=== PATIENT | female | born 1985 | race Caucasian/White ===

== ENCOUNTER 2017-04-12 13:35 | Emergency (ER) | payer OTHER ==
[2017-04-12] MEDS ORDERED: KETOROLAC TROMETHAMINE INJ/PF 30 MG/1 ML SDV IM ONE (16:30)
[2017-04-12] MEDS ORDERED: DIAZEPAM 5 MG TABLET PO ONE (16:31)
--- NOTE | 2017-04-12 16:37 | ER Document Report ---
ED Neck/Back Problem - General Chief Complaint: Neck Pain < 24hrs old Stated Complaint: NECK PAIN Time Seen by Provider: 04/12/17 16:18 Mode of Arrival: Ambulatory Information source: Patient TRAVEL OUTSIDE OF THE [place] IN LAST 30 DAYS: No - HPI Patient complains to provider of: Pain Onset: This morning Where: Home Onset: Cannot confirm Timing: Constant Quality of pain: No pain, Cramping Severity: Moderate Recent injury: No Notes: Patient arrives with complaints of neck pain and stiffness with stiffness to the right lateral neck that started this morning when she woke up. Patient has a history of arthritis in her neck and states that she currently takes Celebrex and Robaxin for her neck. She denies any traumas or falls. She denies any fever. She denies any headache. She denies any unilateral numbness, tingling, weakness. She denies any chest pain or shortness of breath. She denies fevers. She denies blood thinners. She denies IV drug use. She denies any immunosuppression or diabetes. No chest pain or shortness of breath. No bowel or bladder dysfunction. She denies any abdominal pain. No nausea, vomiting, diarrhea. No blurred or loss vision. Pain is significantly worse with any sort of movement, better with keeping her head still. No rash. No other complaints at this time. - Related Data Allergies/Adverse Reactions: Penicillins Allergy (Severe, Verified 04/12/17 13:36) Generalized edema Past Medical History - Social History Smoking Status: Unknown if Ever Smoked Family History: Reviewed & Not Pertinent - Past Medical History Cardiac Medical History: Denies: Hx Heart Attack, Hx Hypertension Pulmonary Medical History: Reports: Hx Asthma - as a child/no problem as an adult Neurological Medical History: Denies: Hx Cerebrovascular Accident, Hx Seizures GI Medical History: Denies: Hx Hepatitis, Hx Hiatal Hernia - small umbilical hernia, Hx Ulcer Infectious Medical History: Denies: Hx Hepatitis Past Surgical History: Reports: Hx Gynecologic Surgery. Denies: Hx Hysterectomy , Hx Mastectomy, Hx Open Heart Surgery, Hx Pacemaker - Immunizations Immunizations up to date: Yes Hx Diphtheria, Pertussis, Tetanus Vaccination: Yes Review of Systems - Review of Systems -: Yes All other systems reviewed and negative Physical Exam - Notes Notes: GENERAL: alert, cooperative, nontoxic, no distress. HEAD: normocephalic, atraumatic EYES: conjunctiva pink without discharge, no external redness or swelling. Pupils are equal, round, reactive to light. EARS: no external swelling, no external redness NOSE: atraumatic, no external swelling MOUTH/THROAT: mucous membranes moist and pink, posterior pharynx without erythema, swelling, exudate. No trismus or drooling. NECK: soft, supple, no meningismus. Muscle spasm noted to the right trapezius muscle with tenderness along the trapezius muscle and limited range of motion of the neck secondary to pain and muscle spasm. No stridor. No redness. CHEST: no distress, lungs clear and equal throughout. No wheezing, rales, rhonchi. CARDIAC: regular rate and rhythm, no murmur, normal capillary refill, normal pulses. No peripheral edema noted. BACK: full range of motion, no CVA tenderness. EXTREMITIES: full range of motion of all extremities. No redness, no swelling. NEURO: alert and oriented x 3, cranial nerves II through XII are grossly intact. Upper and lower extremities are equal throughout. Normal sensation. No focal deficits, full range of motion of all extremities. normal finger to nose. Bicep and tricep reflexes are +2 bilaterally. PYSCH: appropriate mood, affect. Patient is cooperative. SKIN: pink, warm, dry, no rash. Course - Re-evaluation Re-evalutation: 04/12/17 16:36 Patient is nontoxic appearing with stable vitals. The patient has a history of arthritis within her neck. She woke up this morning with stiffness and increased pain to the neck. She is noted to have muscle spasms to the right trapezius muscle and exam consistent with torticollis. No fevers, no meningismus, no sign of meningitis. She has a nonfocal neurological exam with normal sensation, strength and reflexes. No sign of epidural abscess/bleed. Patient will be given a shot of Toradol and Valium here in the emergency department. She will be discharged home with prescription for Voltaren and Valium. She has an appointment with her primary care doctor tomorrow which she was instructed to keep for reevaluation. She should follow-up sooner she develops increasing pain, fevers, weakness, any further concerns. The patient's emergency department workup and current diagnosis were explained to the patient and or family. Follow-up instructions were provided. Medications if prescribed were discussed. Instructions for when to return to the emergency department including specific worrisome symptoms were discussed with the patient and/or family. The patient is noted to have elevated blood pressure during today's emergency department visit. The patient was informed of this finding. The patient was instructed that this may be related to pre-hypertension and requires further evaluation with a primary care provider. The patient has no hypertensive symptoms at this time. Discharge - Discharge Clinical Impression: Torticollis, acute Condition: Stable Disposition: HOME, SELF-CARE Instructions: Torticollis ([facility]) Additional Instructions: Take medications as prescribed. Follow-up with your doctor as scheduled tomorrow. Follow-up sooner for increasing pain, fever, severe headache, numbness, tingling, weakness, any further concerns. Your blood pressure was elevated during today's visit. Have this rechecked with your doctor. The medication you were prescribed today may cause drowsiness. Do not drive or operate heavy machinery while taking this medication. Prescriptions: Diazepam [Valium 5 mg Tablet] 5 mg PO QIDP PRN #15 tablet PRN Reason: Diclofenac Sodium [Voltaren 50 Mg Tablet.Dr] 50 mg PO BID #20 tablet.dr Forms: Elevated Blood Pressure, Smoking Cessation Education Referrals: CHRIS HOLLOWAY MD [NO LOCAL MD] - Follow up as needed RACHID HDZ MD [NO LOCAL MD] - Follow up as needed MITCHELL FLORES MD [NO LOCAL MD] - Follow up as needed EBER GUY MD [COMMUNITY BASED STAFF] - Follow up as needed
[2017-04-12 17:16] VITALS: BP 123/69
== END 2017-04-12 17:12 | disposition home or self-care (01) ==
LOC: ER 13:35
DX: M43.6 Torticollis (principal); M47.9 Spondylosis, unspecified; Z79.899 Other long term (current) drug therapy; Z79.1 Long term (current) use of non-steroidal anti-inflammatories (NSAID); M54.2 Cervicalgia; M62.830 Muscle spasm of back; R03.0 Elevated blood-pressure reading, without diagnosis of hypertension; Z88.0 Allergy status to penicillin
CPT/HCPCS: 99283; 96372; J1885

== ENCOUNTER 2018-05-30 19:52 | Emergency (ER) | payer OTHER ==
--- NOTE | 2018-05-30 22:27 | RADIOLOGY REPORT (SQ) ---
EXAM DESCRIPTION: XR FOOT 3 OR MORE VIEWS COMPLETED DATE/TME: 05/30/2018 21:40 CLINICAL HISTORY: 33 years, Female, toe injury Findings: There is a minimally displaced comminuted fracture of the first proximal phalanx extending from its base obliquely its distal shaft. No dislocation. IMPRESSION: First proximal phalanx minimally displaced fracture.
--- NOTE | 2018-05-30 22:51 | ER Document Report ---
ED Medical Screen (RME) - General Chief Complaint: Toe Injury Stated Complaint: LEFT GREAT TOE INJURY Time Seen by Provider: 05/30/18 22:46 Mode of Arrival: Wheelchair Information source: Patient Notes: pt tripped today hurting right foot. hurts to walk, swellling noted I have greeted and performed a rapid initial assessment of this patient. A comprehensive ED assessment and evaluation of the patient, analysis of test results and completion of the medical decision making process will be conducted by additional ED providers. TRAVEL OUTSIDE OF THE [place] IN LAST 30 DAYS: No - Related Data Allergies/Adverse Reactions: Penicillins Allergy (Severe, Verified 04/12/17 13:36) Generalized edema Past Medical History - Past Medical History Cardiac Medical History: Denies: Hx Heart Attack, Hx Hypertension Pulmonary Medical History: Reports: Hx Asthma - as a child/no problem as an adult Neurological Medical History: Denies: Hx Cerebrovascular Accident, Hx Seizures Renal/ Medical History: Denies: Hx Peritoneal Dialysis GI Medical History: Denies: Hx Hepatitis, Hx Hiatal Hernia - small umbilical hernia, Hx Ulcer Infectious Medical History: Denies: Hx Hepatitis Past Surgical History: Reports: Hx Gynecologic Surgery. Denies: Hx Hysterectomy, Hx Mastectomy, Hx Open Heart Surgery, Hx Pacemaker - Immunizations Immunizations up to date: Yes Hx Diphtheria, Pertussis, Tetanus Vaccination: Yes Physical Exam - Vital signs Vitals: Temp Pulse Resp BP Pulse Ox 98.6 F 86 18 115/77 100 05/30/18 20:50 05/30/18 20:50 05/30/18 20:50 05/30/18 20:50 05/30/18 20:50 Course - Vital Signs Vital signs: Temp Pulse Resp BP Pulse Ox 98.6 F 86 18 115/77 100 05/30/18 20:50 05/30/18 20:50 05/30/18 20:50 05/30/18 20:50 05/30/18 20:50
[2018-05-30] MEDS ORDERED: ACETAMINOPHEN 325 MG TABLET PO ONE (22:52)
--- NOTE | 2018-05-30 22:59 | ER Document Report ---
HPI - HPI Time Seen by Provider: 05/30/18 22:46 Pain Level: 5 Notes: Patient is a 33-year-old female with no significant past medical history who presents to the emergency department complaining of left great toe pain status post injury yesterday. Patient states that she tripped somehow and is not sure which way her toe went, but noted immediate pain. Patient states that she has been limping around since then. Patient states that the pain is worse with touching and movement. Denies drug allergies aside from penicillin. No other concerns or complaints. Denies IV drug abuse. Denies any headache, fever, URI, sore throat, chest pain, palpitations, syncope, cough, shortness of breath, wheeze, dyspnea, abdominal pain, nausea/vomiting/diarrhea, urinary retention, dysuria, hematuria, loss of control of bowel or bladder, muscle paralysis/weakness, or rash. - ROS Systems Reviewed and Negative: Yes All other systems reviewed and negative - REPRODUCTIVE Reproductive: DENIES: : Past Medical History - General Information source: Patient - Social History Smoking Status: Current Every Day Smoker Family History: Reviewed & Not Pertinent - Past Medical History Cardiac Medical History: Denies: Hx Heart Attack, Hx Hypertension Pulmonary Medical History: Reports: Hx Asthma - as a child/no problem as an adult Neurological Medical History: Denies: Hx Cerebrovascular Accident, Hx Seizures Renal/ Medical History: Denies: Hx Peritoneal Dialysis GI Medical History: Denies: Hx Hepatitis, Hx Hiatal Hernia - small umbilical hernia, Hx Ulcer Infectious Medical History: Denies: Hx Hepatitis Past Surgical History: Reports: Hx Gynecologic Surgery. Denies: Hx Hysterectomy, Hx Mastectomy, Hx Open Heart Surgery, Hx Pacemaker - Immunizations Immunizations up to date: Yes Hx Diphtheria, Pertussis, Tetanus Vaccination: Yes Vertical Provider Document - CONSTITUTIONAL Agree With Documented VS: Yes Notes: PHYSICAL EXAMINATION: GENERAL: Well-appearing, well-nourished and in no acute distress. LUNGS: Breath sounds clear to auscultation bilaterally and equal. No wheezes rales or rhonchi. HEART: Regular rate and rhythm without murmurs, rubs, gallops. Musculoskeletal: Left foot/ankle: + ecchymosis and swelling to the left great toe. + associated tenderness. LROM to passive/active of the toe, FROM otherwise. Strength 5+/5. N/V intact distal. Achilles intact. Extremities: No cyanosis, clubbing, or edema b/l. Peripheral pulses 2+. Capillary refill less than 3 seconds. NEUROLOGICAL: Normal speech, limping gait. Normal sensory, motor exams PSYCH: Normal mood, normal affect. SKIN: Warm, Dry, normal turgor, no rashes or lesions noted. - INFECTION CONTROL TRAVEL OUTSIDE OF THE [place] IN LAST 30 DAYS: No Course - Re-evaluation Re-evalutation: 05/30/18 Patient is an afebrile, well-hydrated, 33-year-old female who presents to the ED with a fracture to the left prox great toe, mild displacement, occurred 24hrs ago. Vitals are acceptable without any significant tachycardia, tachypnea, or hypoxia. PE is otherwise unremarkable for any neurovascular compromise, obvious tendon/ligament rupture, open fracture, septic joint. See XR result. Splint applied today and crutches provided. Tylenol given PO. Patient is nontoxic- appearing. No other labs or imaging warranted at this time based on H&P. Conservative measures otherwise for symptoms. Recheck with your PCM in 3-5 d ays. Call orthopedics tomorrow to schedule an appointment for further evaluation and management. Return to the ED with any worsening/concerning symptoms otherwise as reviewed in discharge. Patient is in agreement. - Vital Signs Vital signs: Temp Pulse Resp BP Pulse Ox 98.6 F 86 18 115/77 100 05/30/18 20:50 05/30/18 20:50 05/30/18 20:50 05/30/18 20:50 05/30/18 20:50 Procedures - Immobilization Left Foot Time completed: 23:20 Pre-Proc Neuro Vasc Exam: Normal Immobilizer type: Posterior ankle Performed by: PCT Post-Proc Neuro Vasc Exam: Normal, Unchanged from pre-exam Discharge - Discharge Clinical Impression: Toe fracture, left Qualifiers: Encounter type: initial encounter Toe: great toe Fracture type: closed Phalanx: proximal Fracture alignment: displaced Qualified Code(s): S92.412A - Displaced fracture of proximal phalanx of left great toe, initial encounter for closed fracture Condition: Stable Disposition: HOME, SELF-CARE Instructions: Splint Precautions ([facility]) Additional Instructions: Rest, Ice, Compression, Elevation Use crutches/splint as directed Tylenol/ibuprofen as needed F/u with your PCP in 3-5 days for a recheck Call orthopedics tomorrow to schedule an appointment for further evaluation and management Return to the ED with any worsening symptoms and/or development of fever, headache, chest pain, palpitations, syncope, shortness of breath, trouble breathing, abdominal pain, n/v/d, muscle weakness/paralysis, numbness/tingling, swelling, redness, or other worsening symptoms that are concerning to you. Forms: Smoking Cessation Education, Return to Work Referrals: [facility] [Provider Group] - Follow up in 3-5 days
[2018-05-30 23:35] VITALS: BP 135/74
== END 2018-05-30 23:35 | disposition home or self-care (01) ==
LOC: ER 19:52
DX: S92.412A Displaced fracture of proximal phalanx of left great toe, initial encounter for closed fracture (principal); W01.0XXA Fall on same level from slipping, tripping and stumbling without subsequent striking against object, initial encounter; F17.200 Nicotine dependence, unspecified, uncomplicated
CPT/HCPCS: 99283

== ENCOUNTER 2019-08-16 18:27 | Emergency (ER) | payer OTHER ==
--- NOTE | 2019-08-16 19:31 | RADIOLOGY REPORT (SQ) ---
EXAM DESCRIPTION: FOOT LEFT COMPLETE IMAGES COMPLETED DATE/TIME: 08/16/2019 7:20 pm REASON FOR STUDY: fall COMPARISON: None. NUMBER OF VIEWS: Three views. TECHNIQUE: AP, lateral and oblique radiographic images acquired of the left foot. LIMITATIONS: None. FINDINGS: MINERALIZATION: Normal. BONES: No acute fracture or dislocation. No worrisome bone lesions. JOINTS: No effusions. SOFT TISSUES: No soft tissue swelling. No foreign body. OTHER: No other significant finding. IMPRESSION: NEGATIVE STUDY OF THE LEFT FOOT. NO RADIOGRAPHIC EVIDENCE OF ACUTE INJURY. TECHNICAL DOCUMENTATION: JOB ID: [id number] 2010 [employer]- All Rights Reserved Reading location - IP/workstation name: [email or web address]
--- NOTE | 2019-08-16 21:12 | ER Document Report ---
ED Extremity Problem, Lower - General Chief Complaint: Toe Injury Stated Complaint: TOE PAIN Time Seen by Provider: 08/16/19 18:40 Primary Care Provider: IBETH BRANTLEY PA-C [Primary Care Provider] - Follow up as needed ALLI SMITH DO [ACTIVE STAFF] - Follow up as needed Mode of Arrival: Wheelchair Information source: Patient Notes: Patient is a 34-year-old female comes emergency room complaining of left great toe pain. Patient states she was coming down her steps and she slipped and hyperextended her left great toe. Patient states that toe was fractured 1 year ago. Injury occurred at home. She denies any other injuries. Patient was barefoot at the time of the incident. TRAVEL OUTSIDE OF THE [place] IN LAST 30 DAYS: No - HPI Patient complains to provider of: Injury. No: Swelling Location: Great Toe Occurred: Just prior to arrival Where: Home Onset/Duration: Sudden Quality of pain: Throbbing Severity: Moderate Pain Level: 3 Context: Barefoot Recent injury: Yes Exacerbated by: Movement, Walking Relieved by: Elevation, Rest - Related Data Allergies/Adverse Reactions: Penicillins Allergy (Severe, Verified 08/16/19 18:39) Generalized edema Home Medications: zyrtec. diclofenac Past Medical History - General Information source: Patient - Social History Smoking Status: Current Every Day Smoker Cigarette use (# per day): Yes - Half pack a day Chew tobacco use (# tins/day): No Smoking Education Provided: Yes Frequency of alcohol use: Social Drug Abuse: None Family History: Reviewed & Not Pertinent Patient has homicidal ideation: No - Past Medical History Cardiac Medical History: Denies: Hx Heart Attack, Hx Hypertension Pulmonary Medical History: Reports: Hx Asthma - as a child/no problem as an adult Neurological Medical History: Denies: Hx Cerebrovascular Accident, Hx Seizures Renal/ Medical History: Denies: Hx Peritoneal Dialysis GI Medical History: Denies: Hx Hepatitis, Hx Hiatal Hernia - small umbilical hernia, Hx Ulcer Infectious Medical History: Denies: Hx Hepatitis Past Surgical History: Reports: Hx Gynecologic Surgery. Denies: Hx Hysterectomy, Hx Mastectomy, Hx Open Heart Surgery, Hx Pacemaker - Immunizations Immunizations up to date: Yes Hx Diphtheria, Pertussis, Tetanus Vaccination: Yes Review of Systems - Review of Systems Constitutional: No symptoms reported EENT: No symptoms reported Cardiovascular: No symptoms reported Respiratory: No symptoms reported Gastrointestinal: No symptoms reported Genitourinary: No symptoms reported Female Genitourinary: No symptoms reported Musculoskeletal: See HPI, Joint pain Skin: No symptoms reported Hematologic/Lymphatic: No symptoms reported Neurological/Psychological: No symptoms reported -: Yes All other systems reviewed and negative Physical Exam - Vital signs Vitals: Temp Pulse Resp BP Pulse Ox 99.5 F 86 20 138/71 H 100 08/16/19 18:31 08/16/19 18:31 08/16/19 18:31 08/16/19 18:31 08/16/19 18:31 Interpretation: Hypertensive - Notes Notes: PHYSICAL EXAMINATION: GENERAL: Well-appearing, well-nourished and in no acute distress. HEAD: Atraumatic, normocephalic. LUNGS: Breath sounds clear to auscultation bilaterally and equal. No wheezes rales or rhonchi. HEART: Regular rate and rhythm without murmurs Musculoskeletal: Examination patient's area concern is her left great toe. Examination shows no overt swelling noted. Mild tenderness is noted at the base of the great toe at the distal metatarsal area. Patient has some increased discomfort with resistance against flexion but not as bad on extension. She has good cap refill in nailbeds of the toe itself. Palpation of the dorsum of the foot shows no tenderness. Palpation of the ankle shows no tenderness and has full range of motion with flexion extension that is good against resistance as well as rotation. NEUROLOGICAL: Normal speech, normal gait. Normal sensory, motor exams PSYCH: Normal mood, normal affect. SKIN: Warm, Dry, normal turgor, no rashes or lesions noted. Course - Re-evaluation Re-evalutation: 08/17/19 00:13 Patient's x-ray was negative for any fractures. Examination was non-concerning for a ligament damage since she had flexion and extension but had discomfort with 3 resistance in flexion. Given that we placed patient in a postop shoe and crutches nonweightbearing for the next couple of days. Tylenol Motrin for pain or discomfort and ice 2-3 times a day for a few minutes. - Vital Signs Vital signs: Temp Pulse Resp BP Pulse Ox 98.8 F 80 16 130/78 H 98 08/16/19 21:35 08/16/19 21:35 08/16/19 21:35 08/16/19 21:35 08/16/19 21:35 Procedures - Immobilization Left Foot Great toe Time completed: 21:09 Pre-Proc Neuro Vasc Exam: Normal Immobilizer type: Post-op shoe Performed by: RN Post-Proc Neuro Vasc Exam: Normal Alignment checked and good: No Discharge - Discharge Clinical Impression: Strain of toe of left foot Qualifiers: Encounter type: initial encounter Qualified Code(s): S96.912A - Strain of unspecified muscle and tendon at ankle and foot level, left foot, initial encounter Disposition: HOME, SELF-CARE Instructions: Sprained Toe ([facility]) Additional Instructions: Use the crutches and postop shoe for the next 2 to 3 days. Try to be nonweightbearing as much as possible or time. You should start noticing a change in the discomfort over the next 24 to 48 hours. Ice to the toe or foot 3 times a day. Take Tylenol and Motrin for pain or discomfort. If pain continues I will give you the name the orthopedic doctor he can follow-up with. Should you have any other concerns or problems return to ER for recheck. Forms: Parent Work Note Referrals: IBETH BRANTLEY PA-C [Primary Care Provider] - Follow up as needed ALLI SMITH DO [ACTIVE STAFF] - Follow up as needed
[2019-08-16 21:44] VITALS: BP 130/78
== END 2019-08-16 21:38 | disposition home or self-care (01) ==
LOC: ER 18:27
DX: S96.912A Strain of unspecified muscle and tendon at ankle and foot level, left foot, initial encounter (principal); W10.9XXA Fall (on) (from) unspecified stairs and steps, initial encounter; Y92.009 Unspecified place in unspecified non-institutional (private) residence as the place of occurrence of the external cause; F17.210 Nicotine dependence, cigarettes, uncomplicated; J45.909 Unspecified asthma, uncomplicated; Z88.0 Allergy status to penicillin
CPT/HCPCS: 99283

== ENCOUNTER 2019-09-23 21:26 | Emergency (ER) | payer OTHER ==
[2019-09-23 21:31] VITALS: BP 142/89
[2019-09-23] MEDS ORDERED: BUTALB/ACETAMINOPHEN/CAFFEINE 1 TAB EACH PO ONE (21:54)
[2019-09-23] MEDS ORDERED: PREDNISONE 20 MG TABLET PO ONE (21:54)
--- NOTE | 2019-09-23 21:55 | ER Document Report ---
HPI - HPI Time Seen by Provider: 09/23/19 21:50 Notes: Otherwise healthy 34-year-old female presents emergency department concern for sunburn. Patient reports she was in the sun 3 days ago, she states she received a severe sunburn and also has a headache. She reports she did use SPF 50 and a pplied it multiple times. - ROS Systems Reviewed and Negative: Yes All other systems reviewed and negative - CONSTITUTIONAL Constitutional: REPORTS: Chills - NEURO Neurology: REPORTS: Headache - REPRODUCTIVE Reproductive: DENIES: : - DERM Skin Color: Other - Sunburn Past Medical History - General Information source: Patient - Social History Smoking Status: Never Smoker Frequency of alcohol use: None Drug Abuse: None Family History: Reviewed & Not Pertinent - Past Medical History Cardiac Medical History: Denies: Hx Heart Attack, Hx Hypertension Pulmonary Medical History: Reports: Hx Asthma - as a child/no problem as an adult Neurological Medical History: Denies: Hx Cerebrovascular Accident, Hx Seizures Renal/ Medical History: Denies: Hx Peritoneal Dialysis GI Medical History: Denies: Hx Hepatitis, Hx Hiatal Hernia - small umbilical hernia, Hx Ulcer Infectious Medical History: Denies: Hx Hepatitis Past Surgical History: Reports: Hx Gynecologic Surgery. Denies: Hx Hysterectomy, Hx Mastectomy, Hx Open Heart Surgery, Hx Pacemaker - Immunizations Immunizations up to date: Yes Hx Diphtheria, Pertussis, Tetanus Vaccination: Yes Vertical Provider Document - CONSTITUTIONAL Notes: PHYSICAL EXAMINATION: GENERAL: Well-appearing, well-nourished and in no acute distress. HEAD: Atraumatic, normocephalic. EYES: Pupils equal round extraocular movements intact, conjunctiva are normal. ENT: Nares patent NECK: Normal range of motion LUNGS: No respiratory distress Musculoskeletal: Normal range of motion NEUROLOGICAL: Normal speech, normal gait. PSYCH: Normal mood, normal affect. SKIN: First-degree meyer noted to patient's chest, back and face. Consistent with sunburn. - INFECTION CONTROL TRAVEL OUTSIDE OF THE [place] IN LAST 30 DAYS: No Course - Re-evaluation Re-evalutation: Patient given a dose of Fioricet here in the emergency department for headache. She will be instructed to start taking Aquaphor for her sunburn. Patient verbalized understanding and agreement with this plan. - Vital Signs Vital signs: Temp Pulse Resp BP Pulse Ox 99.2 F 90 20 142/89 H 100 09/23/19 21:30 09/23/19 21:30 09/23/19 21:30 09/23/19 21:30 09/23/19 21:30 Discharge - Discharge Clinical Impression: Sunburn Headache Qualifiers: Headache type: unspecified Headache chronicity pattern: unspecified pattern Intractability: not intractable Qualified Code(s): R51 - Headache Condition: Stable Disposition: HOME, SELF-CARE Additional Instructions: Sunburn Sunburn is caused by prolonged exposure to ultraviolet light. This can be natural sunlight or a tanning bed. Your symptoms may include redness or blistering of the skin, fatigue, weakness, and chills that last two or three days. Treatment includes antiinflammatory pain medication, rest, cooling baths, and moisturizing skin cream. Occasionally, cortisone-type medicine is required for severe sunburns. Antihistamines may be helpful if itching is severe as you heal. You should avoid any exposure to ultraviolet light for the next week or two so that further skin damage can be avoided. In the future, you should use sunscreens. Frequent or prolonged ultraviolet light exposure can cause premature skin aging, skin cancers, and wrinkles. Call the doctor if you are not improving in two or three days. Report any drainage, increasing swelling, fever, chills, or other signs of infection. Please purchase [id number] Aquaphor cream, apply this to the areas 3 times per day. Take the steroids as prescribed. Follow-up with your primary care doctor. Prescriptions: Prednisone [Deltasone 20 mg Tablet] 3 tab PO DAILY 4 Days #12 tablet Forms: Return to Work Referrals: IBETH BRANTLEY PA-C [Primary Care Provider] - Follow up as needed
== END 2019-09-23 22:05 | disposition home or self-care (01) ==
LOC: ER 21:26
DX: L55.0 Sunburn of first degree (principal); R51 Headache
CPT/HCPCS: 99282; J3490; J7512

== ENCOUNTER 2019-10-15 18:49 | Emergency (ER) | payer OTHER ==
--- NOTE | 2019-10-15 19:38 | ER Document Report ---
ED Medical Screen (RME) - General Chief Complaint: Headache Stated Complaint: HEADACHE,ABDOMINAL PAIN Time Seen by Provider: 10/15/19 19:33 Primary Care Provider: IBETH BRANTLEY PA-C [Primary Care Provider] - Follow up as needed TRAVEL OUTSIDE OF THE [place] IN LAST 30 DAYS: No - HPI Notes: 10/15/19 19:56 34-year-old female presents to the emergency room with complaints of a headache x2 days with left upper quadrant abdominal pain that started this morning. Reports abdominal pain is worse with movement better when laying down. Reports pain to the left upper quadrant radiates to epigastric area. Denies any nausea vomiting or diarrhea, denies any fever chills, denies any chest pain or shortness of breath. Last bowel movement was today. Patient states she does have her E sure, states her last menstrual cycle was September 19, did have some vaginal spotting today. G3, P3, denies any abdominal surgeries. Patient states she drinks in moderation. Denies any sore throat, congestion. Denies worst headache of life. Denies not have a history of headaches or migraines,. I have greeted and performed a rapid initial assessment of this patient. A comprehensive ED assessment and evaluation of the patient, analysis of test results and completion of the medical decision making process will be conducted by additional ED providers. PHYSICAL EXAMINATION: GENERAL: Well-appearing, well-nourished and in no acute distress. HEAD: Atraumatic, normocephalic. EYES: Pupils equal round extraocular movements intact, conjunctiva are normal. NECK: Normal range of motion CV: s1, s2 regular LUNGS: No respiratory distress abd: LUQ abd pain to palpation, no cva tenderness appreciated bilaterally Musculoskeletal: Normal range of motion NEUROLOGICAL: Normal speech, normal gait. SKIN: Warm, Dry, normal turgor, no rashes or lesions noted. - Related Data Allergies/Adverse Reactions: Penicillins Allergy (Severe, Verified 08/16/19 18:39) Generalized edema Past Medical History - Past Medical History Cardiac Medical History: Denies: Hx Heart Attack, Hx Hypertension Pulmonary Medical History: Reports: Hx Asthma - as a child/no problem as an adult Neurological Medical History: Denies: Hx Cerebrovascular Accident, Hx Seizures Renal/ Medical History: Denies: Hx Peritoneal Dialysis GI Medical History: Denies: Hx Hepatitis, Hx Hiatal Hernia - small umbilical hernia, Hx Ulcer Infectious Medical History: Denies: Hx Hepatitis Past Surgical History: Reports: Hx Gynecologic Surgery. Denies: Hx Hysterecto my, Hx Mastectomy, Hx Open Heart Surgery, Hx Pacemaker - Immunizations Immunizations up to date: Yes Hx Diphtheria, Pertussis, Tetanus Vaccination: Yes Doctor's Discharge - Discharge Referrals: IBETH BRANTLEY PA-C [Primary Care Provider] - Follow up as needed
[2019-10-15 22:39] LABS: ABSOLUTE BASOPHILS # (AUTO) 0.1 10^3/uL (0.0-0.2); ABSOLUTE EOSINOPHILS # (AUTO) 0.2 10^3/uL (0.0-0.6); ABSOLUTE LYMPHOCYTES (AUTO) 2.3 10^3/uL (0.5-4.7); ABSOLUTE MONOCYTES (AUTO) 0.5 10^3/uL (0.1-1.4); ABSOLUTE NEUT (AUTO) 7.6 10^3/uL (1.7-8.2); BASOPHILS % (AUTO) 1.3 % (0-2); EOSINOPHILS % (AUTO) 1.8 % (0-6); HEMATOCRIT 38.3 % (36.0-47.0); HEMOGLOBIN 13.2 g/dL (12.0-15.5); LYMPHOCYTES % (AUTO) 20.9 % (13-45); MEAN CORPUSCULAR HEMOGLOBIN 32.4 pg (27.0-33.4); MEAN CORPUSCULAR HGB CONC 34.6 g/dL (32.0-36.0); MEAN CORPUSCULAR VOLUME 94 fl (80-97); PLATELET COUNT 303 10^3/uL (150-450); RED BLOOD COUNT 4.08 10^6/uL (3.72-5.28); RED CELL DISTRIBUTION WIDTH 12.8 % (11.5-14.0); TOTAL CELLS COUNTED % (AUTO) 100 %; WHITE BLOOD COUNT 10.8 10^3/uL (4.0-10.5)
[2019-10-15] MEDS ORDERED: KETOROLAC TROMETHAMINE INJ/PF 30 MG/1 ML SDV IV ONE (22:45)
[2019-10-15] MEDS ORDERED: NORMAL SALINE 1000 ML 1,000 ML IV ONE (22:45)
[2019-10-15 22:50] LABS: AMORPHOUS SEDIMENT,URINE TRACE /HPF; APPEARANCE,URINE SLIGHTLY-CLOUDY; BILIRUBIN,URINE NEGATIVE (NEGATIVE); COLOR,URINE YELLOW; GLUCOSE, URINE NEGATIVE (NEGATIVE); KETONES,URINE NEGATIVE (NEGATIVE); LEUKOCYTE ESTERASE,URINE SMALL (NEGATIVE); NITRITE,URINE NEGATIVE (NEGATIVE); PROTEIN,URINE 30 mg/dL (NEGATIVE); URINE SPECIFIC GRAVITY 1.024
[2019-10-15 22:56] LABS: ALBUMIN 3.9 g/dL (3.5-5.0); ALKALINE PHOSPHATASE 62 U/L (38-126); ASPARTATE AMINO TRANSFERASE 21 U/L (14-36); BILIRUBIN,TOTAL 0.4 mg/dL (0.2-1.3); BLOOD UREA NITROGEN 12 mg/dL (7-20); CALCIUM 8.9 mg/dL (8.4-10.2); GLUCOSE 86 mg/dL (75-110); POTASSIUM 4.4 mmol/L (3.6-5.0); TOTAL PROTEIN 6.4 g/dL (6.3-8.2)
[2019-10-15 23:01] LABS: CARBON DIOXIDE 29 mmol/L (22-30); CHLORIDE 103 mmol/L (98-107)
[2019-10-15 23:02] LABS: ANION GAP 4 (5-19)
--- NOTE | 2019-10-16 00:18 | RADIOLOGY REPORT (SQ) ---
CLINICAL INDICATION: LUQ and epigastric abd pain. . TECHNIQUE: Contrast enhanced spiral axial CT imaging was obtained of the abdomen and pelvis with multiplanar reconstructions. This exam was performed according to our departmental dose-optimization program, which includes automated exposure control, adjustment of the mA and/or kV according to patient size and/or use of iterative reconstruction techniques. COMPARISON: None. CORRELATION: None. FINDINGS: Abdomen: The lung bases are grossly clear. The heart is of normal size. No evidence of pleural or pericardial fluid. The liver is of normal size contour and attenuation. The gallbladder is nondistended without inflammatory change. The pancreas is unremarkable. The spleen is unremarkable. The adrenals are unremarkable. The kidneys appear grossly normal without evidence of urolithiasis or hydronephrosis. There is no evidence of free air. No free fluid. No bulky adenopathy. Abdominal aorta is nonaneurysmal. Pelvis: The bowel is nonobstructed. The bowel is unopacified with oral contrast. Pelvic contents demonstrate postsurgical change. The appendix is not seen. Diverticulosis. Mild surrounding inflammatory changes adjacent to the left hemicolon. Visualized bones are unremarkable. IMPRESSION: Mild acute uncomplicated diverticulitis of the left hemicolon.
[2019-10-16] MEDS ORDERED: METRONIDAZOLE 500 MG TABLET PO ONE (00:40)
[2019-10-16] MEDS ORDERED: CIPROFLOXACIN HCL 500 MG TABLET PO ONE (00:40)
--- NOTE | 2019-10-16 00:47 | ER Document Report ---
ED GI/ - General Chief Complaint: Abdominal Pain Stated Complaint: HEADACHE,ABDOMINAL PAIN Time Seen by Provider: 10/15/19 19:33 Primary Care Provider: IBETH BRANTLEY PA-C [Primary Care Provider] - Follow up as needed Notes: DEVORA HPI: 34-year-old female presents to the emergency room with complaints of a headache x2 days with left upper quadrant abdominal pain that started this morning. Reports abdominal pain is worse with movement better when laying down. Reports pain to the left upper quadrant radiates to epigastric area. Denies any nausea vomiting or diarrhea, denies any fever chills, denies any chest pain or shortness of breath. Last bowel movement was today. Patient states she does have her E sure, states her last menstrual cycle was September 19, did have some vaginal spotting today. G3, P3, denies any abdominal surgeries. Patient states she drinks in moderation. Denies any sore throat, congestion. Denies worst headache of life. Denies not have a history of headaches or migraines,. TRAVEL OUTSIDE OF THE [place] IN LAST 30 DAYS: No - Related Data Allergies/Adverse Reactions: Penicillins Allergy (Severe, Verified 08/16/19 18:39) Generalized edema Home Medications: zyrtec Past Medical History - General Information source: Patient - Social History Smoking Status: Current Every Day Smoker Chew tobacco use (# tins/day): No Frequency of alcohol use: Social Drug Abuse: None Family History: Reviewed & Not Pertinent - Past Medical History Cardiac Medical History: Denies: Hx Heart Attack, Hx Hypertension Pulmonary Medical History: Reports: Hx Asthma - as a child/no problem as an adult Neurological Medical History: Denies: Hx Cerebrovascular Accident, Hx Seizures Renal/ Medical History: Denies: Hx Peritoneal Dialysis GI Medical History: Denies: Hx Hepatitis, Hx Hiatal Hernia - small umbilical hernia, Hx Ulcer Infectious Medical History: Denies: Hx Hepatitis Past Surgical History: Reports: Hx Gynecologic Surgery. Denies: Hx Hysterectomy, Hx Mastectomy, Hx Open Heart Surgery, Hx Pacemaker - Immunizations Immunizations up to date: Yes Hx Diphtheria, Pertussis, Tetanus Vaccination: Yes Review of Systems - Review of Systems Constitutional: No symptoms reported EENT: No symptoms reported Cardiovascular: No symptoms reported Respiratory: No symptoms reported Gastrointestinal: Abdominal pain Genitourinary: No symptoms reported Female Genitourinary: No symptoms reported Musculoskeletal: No symptoms reported Skin: No symptoms reported Hematologic/Lymphatic: No symptoms reported Neurological/Psychological: Headaches Physical Exam - Vital signs Vitals: Temp Pulse Resp BP Pulse Ox 99.0 F 67 20 121/69 100 10/15/19 21:33 10/15/19 21:33 10/15/19 21:33 10/15/19 21:33 10/15/19 21:33 - Notes Notes: PHYSICAL EXAMINATION: GENERAL: Well-appearing, well-nourished and in no acute distress. HEAD: Atraumatic, normocephalic. EYES: Pupils equal round and reactive to light, extraocular movements intact, conjunctiva are normal. ENT: Nares patent, oropharynx clear without exudates. Moist mucous membranes. NECK: Normal range of motion, supple without lymphadenopathy LUNGS: Breath sounds clear to auscultation bilaterally and equal. No wheezes rales or rhonchi. HEART: Regular rate and rhythm without murmurs ABDOMEN: Soft, nondistended abdomen. Tenderness to palpation to the left upper and left lower quadrant. No guarding, no rebound. No masses appreciated. Female : deferred Musculoskeletal: Normal range of motion, no pitting or edema. No cyanosis. NEUROLOGICAL: Cranial nerves grossly intact. Normal speech, normal gait. Normal sensory, motor exams PSYCH: Normal mood, normal affect. SKIN: Warm, Dry, normal turgor, no rashes or lesions noted. Course - Re-evaluation Re-evalutation: Laboratory 10/15/19 10/15/19 10/15/19 22:20 22:20 22:20 WBC 10.8 H RBC 4.08 Hgb 13.2 Hct 38.3 MCV 94 MCH 32.4 MCHC 34.6 RDW 12.8 Plt Count 303 Lymph % (Auto) 20.9 [place] % (Auto) 5.0 Eos % (Auto) 1.8 Baso % (Auto) 1.3 Absolute Neuts (auto) 7.6 Absolute Lymphs (auto) 2.3 Absolute Monos (auto) 0.5 Absolute Eos (auto) 0.2 Absolute Basos (auto) 0.1 Seg Neutrophils % 71.0 Sodium 135.6 L Potassium 4.4 Chloride 103 Carbon Dioxide 29 Anion Gap 4 L BUN 12 Creatinine 0.57 Est GFR ( Amer) > 60 Est GFR (MDRD) Non-Af > 60 Glucose 86 Calcium 8.9 Total Bilirubin 0.4 Direct Bilirubin 0.0 Neonat Total Bilirubin Not Reportable Neonat Direct Bilirubin Not Reportable Neonat Indirect Bili Not Reportable AST 21 ALT 19 Alkaline Phosphatase 62 Total Protein 6.4 Albumin 3.9 Urine Color YELLOW Urine Appearance SLIGHTLY-CLOUDY Urine pH 6.0 Ur Specific [place] 1.024 Urine Protein 30 H Urine Glucose (UA) NEGATIVE Urine Ketones NEGATIVE Urine Blood LARGE H Urine Nitrite NEGATIVE Urine Bilirubin NEGATIVE Urine Urobilinogen 2.0 H Ur Leukocyte Esterase SMALL H Urine WBC (Auto) 10 Urine RBC (Auto) >182 Urine Bacteria (Auto) TRACE Squamous Epi Cells Auto 4 Amorphous Sediment Auto TRACE Urine Mucus (Auto) FEW Urine Ascorbic Acid NEGATIVE Urine HCG, Qual NEGATIVE Abdomen/Pelvis CT 10/15/19 19:38 IMPRESSION: Mild acute uncomplicated diverticulitis of the left hemicolon. Patient appears well, nontoxic. Her CT shows uncomplicated diverticulitis. Patient has no history of this. Patient is not actively vomiting. She is an appropriate candidate to be discharged home on oral medications. She will be sent home on Cipro and Flagyl. ED return precautions discussed, patient verbalizes understanding and agreement with same. - Vital Signs Vital signs: Temp Pulse Resp BP Pulse Ox 97.5 F 63 18 120/65 98 10/16/19 01:31 10/16/19 01:31 10/16/19 01:31 10/16/19 01:31 10/16/19 01:31 - Laboratory Result Diagrams: 10/15/19 22:20 10/15/19 22:20 Laboratory results interpreted by me: 10/15/19 10/15/19 10/15/19 22:20 22:20 22:20 WBC 10.8 H Sodium 135.6 L Anion Gap 4 L Urine Protein 30 H Urine Blood LARGE H Urine Urobilinogen 2.0 H Ur Leukocyte Esterase SMALL H Discharge - Discharge Clinical Impression: Diverticulitis Condition: Stable Disposition: HOME, SELF-CARE Additional Instructions: Diverticulitis You have been diagnosed as having diverticulitis. This is an inflammation of a small pouch attached to the colon, called a diverticulum. Many of these small pouches can form on the colon as you get older. They are often caused by constipation. When inflamed or infected, symptoms arise -- usually abdominal pain, constipation or diarrhea, fever, and blood in the stool. Severe diverticulitis may require hospitalization. More mild cases are usually treated with antibiotics and clear liquid diet. As you improve, a diet low in residue (one which forms little stool) is prescribed. When you are better, you should eat a high-fiber diet. Stool softeners (like Metamucil) are usually recommended. Call the doctor or go to the hospital if there is increasing pain, vomiting, high fever, large amounts of blood passed, or if bowel movements cease. Prescriptions: Ciprofloxacin HCl [Cipro 500 mg Tablet] 500 mg PO BID #20 tablet Metronidazole [Flagyl 500 mg Tablet] 500 mg PO Q8H #30 tablet Promethazine HCl [Phenergan 25 mg Tablet] 1 - 2 tab PO Q6H PRN #20 tablet PRN Reason: Forms: Return to Work Referrals: IBETH BRANTLEY PA-C [Primary Care Provider] - Follow up as needed
[2019-10-16 01:33] VITALS: BP 120/65
== END 2019-10-16 01:59 | disposition home or self-care (01) ==
LOC: ER 18:49
DX: K57.32 Diverticulitis of large intestine without perforation or abscess without bleeding (principal); R51 Headache; R10.12 Left upper quadrant pain; R10.812 Left upper quadrant abdominal tenderness; R10.814 Left lower quadrant abdominal tenderness; F17.200 Nicotine dependence, unspecified, uncomplicated; Z97.5 Presence of (intrauterine) contraceptive device; Z88.0 Allergy status to penicillin
CPT/HCPCS: 99284; 96361; 96374; 36415; 85025; 81025; 80053; 81001; 74177; J1885; J7030

== ENCOUNTER 2020-01-10 08:09 | Day surgery (SDC) | payer OTHER ==
[~2020-01-10 08:09] MED LIST: PROPOFOL INJ 200 MG/20 ML VIAL IV ONE
--- NOTE | 2020-01-10 10:46 | Operative Report ---
Operative Report DATE OF SURGERY: 01/10/20 Operative Report: The risk, benefits and alternatives of the procedure including the risks of bleeding, perforation requiring surgery have been explained to the patient in detail and informed consent has been obtained. The patient is taken back to the endoscopy suite and placed in a left lateral, decubital position. Timeout was called. Propofol medication is administered. Rectal examination is done which did not reveal any masses tears or fissures. An Olympus videoscope was introduced into the patient's rectum. The colonoscope then carefully advanced all the way to the cecum. Cecum was identified by the usual anatomical landmarks including the ileocecal valve as well as the appendiceal office. Prep is good. Scope was then sequentially pulled back via the various segments of the colon including the ascending colon, hepatic fracture, transverse colon, splenic flexure, descending colon finally into the rectosigmoid portions of the colon. Retroflexion maneuver is performed. PREOPERATIVE DIAGNOSIS: Change in bowel habits POSTOPERATIVE DIAGNOSIS: Diverticulosis on the left side associated with some inflammation OPERATION: Colonoscopy with biopsy SURGEON: MARIE ARRIAGA ANESTHESIA: LMAC TISSUE REMOVED OR ALTERED: As noted above. COMPLICATIONS: None. ESTIMATED BLOOD LOSS: None. INTRAOPERATIVE FINDINGS: As noted above. PROCEDURE: Patient tolerated the procedure well. No immediate postprocedure complications are noted. Patient is discharged in good condition. Discharge date 01/10/2020. Discharge diet: Regular. Discharge activity: Regular. 2 to 3-week follow-up to discuss findings. Patient is instructed call the office or proceed to the emergency room should there be any further problems or questions. Wait on the pathology.
[2020-01-10] MEDS ORDERED: PROPOFOL INJ 200 MG/20 ML VIAL IV ONE (11:03)
[2020-01-10 11:35] VITALS: BP 106/68
== END 2020-01-10 11:42 | disposition home or self-care (01) ==
LOC: END 08:09
PROVIDERS: ATTEND Internal Medicine Gastroenterology
DX: K57.30 Diverticulosis of large intestine without perforation or abscess without bleeding (principal); K52.9 Noninfective gastroenteritis and colitis, unspecified; F17.200 Nicotine dependence, unspecified, uncomplicated; K21.9 Gastro-esophageal reflux disease without esophagitis; Z87.19 Personal history of other diseases of the digestive system; Z80.1 Family history of malignant neoplasm of trachea, bronchus and lung; Z80.51 Family history of malignant neoplasm of kidney; Z79.899 Other long term (current) drug therapy; Z88.0 Allergy status to penicillin
CPT/HCPCS: 45380; 88305 ×2; J2704; 811

== ENCOUNTER 2020-02-18 21:56 | Emergency (ER) | payer OTHER ==
--- NOTE | 2020-02-18 23:11 | ER Document Report ---
ED Medical Screen (RME) - General Chief Complaint: Flank Pain Stated Complaint: FLANK PAIN Time Seen by Provider: 02/18/20 23:05 Primary Care Provider: IBETH BRANTLEY PA-C [Primary Care Provider] - Follow up as needed TRAVEL OUTSIDE OF THE [place] IN LAST 30 DAYS: No - HPI Notes: 02/18/20 23:09 34-year-old female to the emergency department with complaints of left-sided abdominal pain and flank pain that has been off and on since September but worse since after Thanks. Denies any nausea vomiting or diarrhea. She states that she had a colonoscopy with Dr. Estrada several weeks ago. She denies any fevers or chills. She states that the patient is getting worse since she had the colonoscopy. Denies any blood in her stool. She states she has been taking Bentyl for pain without any relief. She also has been taking Voltaren. Denies any urinary symptoms. Denies possibility for . On brief medical screening exam there is tenderness to palpation to the left upper quadrant and left lower quadrant of the abdomen. I performed a brief medical screening exam on the patient determined that the patient needs further evaluation and management by main side provider. I have placed initial orders to help expedite care. - Related Data Allergies/Adverse Reactions: Penicillins Allergy (Severe, Verified 02/18/20 23:05) Generalized edema Past Medical History - Past Medical History Cardiac Medical History: Denies: Hx Coronary Artery Disease, Hx Heart Attack, Hx Hypertension Pulmonary Medical History: Reports: Hx Asthma - as a child/no problem as an adult Denies: Hx Bronchitis, Hx COPD, Hx Pneumonia Neurological Medical History: Denies: Hx Cerebrovascular Accident, Hx Seizures Renal/ Medical History: Denies: Hx Peritoneal Dialysis GI Medical History: Denies: Hx Hepatitis, Hx Hiatal Hernia - small umbilical hernia, Hx Ulcer Musculoskeltal Medical History: Reports Hx Arthritis - NECK Infectious Medical History: Denies: Hx Hepatitis Past Surgical History: Reports: Hx Gynecologic Surgery. Denies: Hx Hysterectomy, Hx Mastectomy, Hx Open Heart Surgery, Hx Pacemaker - Immunizations Immunizations up to date: Yes Hx Diphtheria, Pertussis, Tetanus Vaccination: Yes Physical Exam - Vital signs Vitals: Temp Pulse Resp BP Pulse Ox 98.7 F 82 20 112/65 98 02/18/20 22:02 02/18/20 22:02 02/18/20 22:02 02/18/20 22:02 02/18/20 22:02 Course - Vital Signs Vital signs: Temp Pulse Resp BP Pulse Ox 98.7 F 82 20 112/65 98 02/18/20 22:02 02/18/20 22:02 02/18/20 22:02 02/18/20 22:02 02/18/20 22:02 Doctor's Discharge - Discharge Referrals: IBETH BRANTLEY PA-C [Primary Care Provider] - Follow up as needed
[2020-02-18 23:35] LABS: APPEARANCE,URINE SLIGHTLY-CLOUDY; BILIRUBIN,URINE NEGATIVE (NEGATIVE); COLOR,URINE YELLOW; GLUCOSE, URINE NEGATIVE (NEGATIVE); KETONES,URINE NEGATIVE (NEGATIVE); PROTEIN,URINE NEGATIVE (NEGATIVE); UROBILINOGEN,URINE NEGATIVE mg/dL (<2.0)
[2020-02-18 23:40] LABS: ABSOLUTE BASOPHILS # (AUTO) 0.1 10^3/uL (0.0-0.2); ABSOLUTE EOSINOPHILS # (AUTO) 0.1 10^3/uL (0.0-0.6); ABSOLUTE MONOCYTES (AUTO) 0.5 10^3/uL (0.1-1.4); BASOPHILS % (AUTO) 0.8 % (0-2); EOSINOPHILS % (AUTO) 1.4 % (0-6); HEMATOCRIT 38.4 % (36.0-47.0); HEMOGLOBIN 13.8 g/dL (12.0-15.5); LYMPHOCYTES % (AUTO) 20.8 % (13-45); MEAN CORPUSCULAR HEMOGLOBIN 33.8 pg (27.0-33.4); MEAN CORPUSCULAR HGB CONC 35.9 g/dL (32.0-36.0); MEAN CORPUSCULAR VOLUME 94 fl (80-97); MONOCYTES % (AUTO) 5.4 % (3-13); PLATELET COUNT 310 10^3/uL (150-450); RED BLOOD COUNT 4.08 10^6/uL (3.72-5.28); RED CELL DISTRIBUTION WIDTH 12.6 % (11.5-14.0); SEGMENTED NEUTROPHILS % (AUTO) 71.6 % (42-78); TOTAL CELLS COUNTED % (AUTO) 100 %; WHITE BLOOD COUNT 9.8 10^3/uL (4.0-10.5)
[2020-02-18 23:50] LABS: ALBUMIN 4.2 g/dL (3.5-5.0); ALKALINE PHOSPHATASE 75 U/L (38-126); ASPARTATE AMINO TRANSFERASE 23 U/L (14-36); BILIRUBIN,DIRECT 0.1 mg/dL (0.0-0.4); BILIRUBIN,TOTAL 0.3 mg/dL (0.2-1.3); BLOOD UREA NITROGEN 14 mg/dL (7-20); CALCIUM 9.4 mg/dL (8.4-10.2); CARBON DIOXIDE 29 mmol/L (22-30); GLUCOSE 88 mg/dL (75-110); POTASSIUM 4.6 mmol/L (3.6-5.0); TOTAL PROTEIN 6.8 g/dL (6.3-8.2)
[2020-02-18 23:55] LABS: CHLORIDE 102 mmol/L (98-107)
[2020-02-18 23:56] LABS: ANION GAP 3 (5-19)
--- NOTE | 2020-02-19 01:04 | ER Document Report ---
ED General - General Chief Complaint: Flank Pain Stated Complaint: FLANK PAIN Time Seen by Provider: 02/18/20 23:05 Primary Care Provider: IBETH BRANTLEY PA-C [Primary Care Provider] - Follow up as needed Notes: Patient presents to the ER for evaluation of left sided abdominal pain intermittently times several weeks. The patient states she had a colonoscopy in December which showed diverticulosis. She has been given Cipro and Flagyl for her symptoms in the past without relief. She denies fever. She denies vomi ting. She denies diarrhea. She did have a normal bowel movement today. She denies dysuria. She denies low back pain. Nursing notes reviewed and past medical, social, and family histories reviewed and validated. TRAVEL OUTSIDE OF THE [place] IN LAST 30 DAYS: No - Related Data Allergies/Adverse Reactions: Penicillins Allergy (Severe, Verified 02/18/20 23:05) Generalized edema Home Medications: BACLOFEN. DICLOFENA Past Medical History - General Information source: Patient - Social History Smoking Status: Current Every Day Smoker Cigarette use (# per day): Yes - Half a pack Chew tobacco use (# tins/day): No Smoking Education Provided: Yes Frequency of alcohol use: Social Drug Abuse: None Lives with: Family Family History: Reviewed & Not Pertinent Patient has suicidal ideation: No Patient has homicidal ideation: No - Past Medical History Cardiac Medical History: Denies: Hx Coronary Artery Disease, Hx Heart Attack, Hx Hypertension Pulmonary Medical History: Reports: Hx Asthma - as a child/no problem as an adult Denies: Hx Bronchitis, Hx COPD, Hx Pneumonia EENT Medical History: Reports: None Neurological Medical History: Denies: Hx Cerebrovascular Accident, Hx Seizures Endocrine Medical History: Reports: None Renal/ Medical History: Denies: Hx Peritoneal Dialysis Malignancy Medical History: Reports: None GI Medical History: Reports: Hx Diverticulitis, Hx Colonoscopy. Denies: Hx Hepatitis, Hx Hiatal Hernia - small umbilical hernia, Hx Ulcer Musculoskeletal Medical History: Reports Hx Arthritis - NECK Skin Medical History: Reports None Psychiatric Medical History: Reports: None Traumatic Medical History: Reports: None Infectious Medical History: Denies: Hx Hepatitis Past Surgical History: Reports: Hx Gynecologic Surgery. Denies: Hx Hysterectomy, Hx Mastectomy, Hx Open Heart Surgery, Hx Pacemaker - Immunizations Immunizations up to date: Yes Hx Diphtheria, Pertussis, Tetanus Vaccination: Yes Review of Systems - Review of Systems Notes: Constitutional: Negative for fever. HENT: Negative for sore throat. Eyes: Negative for visual changes. Cardiovascular: Negative for chest pain. Respiratory: Negative for shortness of breath. Gastrointestinal: Positive for abdominal pain. Negative for vomiting or diarrhea. Genitourinary: Negative for dysuria. Musculoskeletal: Negative for back pain. Skin: Negative for rash. Neurological: Negative for headaches, weakness or numbness. 10 point ROS negative except as marked above and in HPI. Physical Exam - Vital signs Vitals: Temp Pulse Resp BP Pulse Ox 98.7 F 82 20 112/65 98 02/18/20 22:02 02/18/20 22:02 02/18/20 22:02 02/18/20 22:02 02/18/20 22:02 - Notes Notes: CONSTITUTIONAL: Well appearing. No acute distress. SKIN: Warm, dry, and intact without rash EYES: Extraocular movements are grossly intact, clear conjunctiva HENT: Normocephalic, atraumatic, moist mucus membranes NECK: No obvious swelling, normal range of motion PULMONARY: Normal chest rise and fall. Breath sounds clear and equal bilaterally. No respiratory distress or stridor CARDIOVASCULAR: Regular rate. No murmurs, rubs, gallops. Distal extremities are warm and well perfused. ABDOMINAL: The abdomen is soft. There is mild palpation in the left upper and lower quadrants. No guarding noted. NEUROLOGIC: Normal speech, moves all extremities. MUSCULOSKELETAL: No gross deformities, atraumatic PSYCHIATRIC: Normal mood and affect Course - Re-evaluation Re-evalutation: 02/19/20 01:04 Rechecked patient who has responded well to treatment in the ER. Discussed with patient: results, diagnosis, treatment plan, and need for follow-up. Return to the emergency department warnings were given. All questions and concerns were addressed. The plan is agreed with and understood. Patient is stable and ready for discharge. - Vital Signs Vital signs: Temp Pulse Resp BP Pulse Ox 98.7 F 82 20 112/65 98 02/18/20 22:02 02/18/20 22:02 02/18/20 22:02 02/18/20 22:02 02/18/20 22:02 - Laboratory Result Diagrams: 02/18/20 23:20 02/18/20 23:20 Laboratory results interpreted by me: 02/18/20 02/18/20 23:20 23:20 MCH 33.8 H Sodium 134.3 L Anion Gap 3 L Discharge - Discharge Clinical Impression: Left sided abdominal pain Condition: Stable Disposition: HOME, SELF-CARE Instructions: Abdominal Pain ([facility]) Additional Instructions: Make sure to follow back up with your GI doctor as discussed. Return to the emergency room if your symptoms change or worsen. Referrals: IBETH BRANTLEY PA-C [Primary Care Provider] - Follow up as needed
[2020-02-19 01:26] VITALS: BP 120/85
== END 2020-02-19 01:26 | disposition home or self-care (01) ==
LOC: ER 21:56
DX: R10.9 Unspecified abdominal pain (principal); F17.210 Nicotine dependence, cigarettes, uncomplicated; M47.812 Spondylosis without myelopathy or radiculopathy, cervical region; Z79.1 Long term (current) use of non-steroidal anti-inflammatories (NSAID); Z79.899 Other long term (current) drug therapy; Z87.19 Personal history of other diseases of the digestive system; Z88.0 Allergy status to penicillin
CPT/HCPCS: 36415; 80053; 81001; 81025; 83690; 85025; 99283